=== PATIENT | male | born 1980 | race Caucasian/White ===

== ENCOUNTER 2020-11-02 08:25 | Outpatient (REF) | payer OTHER, SELFPAY ==
[2020-11-02 08:57] LABS: COVID-19 Test Negative (Negative); IDNOW Serial# 55D5AD1C
== END 2020-11-02 08:26 | disposition home or self-care (01) ==
LOC: HO.EMPCOV 08:25
PROVIDERS: PCP Internal Medicine; Visit Provider Internal Medicine
DX: Z20.828 Contact with and (suspected) exposure to other viral communicable diseases (principal)
CPT/HCPCS: 87635; C9803

== ENCOUNTER 2020-11-20 08:25 | Outpatient (REF) | payer OTHER, SELFPAY ==
[2020-11-20 09:26] LABS: COVID-19 Test Negative (Negative)
== END 2020-11-20 08:26 | disposition home or self-care (01) ==
LOC: HO.EMPCOV 08:25
PROVIDERS: Visit Provider Internal Medicine
DX: Z20.828 Contact with and (suspected) exposure to other viral communicable diseases (principal)
CPT/HCPCS: 87635; C9803

== ENCOUNTER 2020-12-05 08:23 | Outpatient (REF) | payer OTHER, SELFPAY ==
[2020-12-05 08:48] LABS: COVID-19 Test Negative (Negative); IDNOW Serial# 55D5AD1C
== END 2020-12-05 08:24 | disposition home or self-care (01) ==
LOC: HO.EMPCOV 08:23
PROVIDERS: Visit Provider Internal Medicine
DX: Z20.828 Contact with and (suspected) exposure to other viral communicable diseases (principal)
CPT/HCPCS: 36415; 87635; C9803

== ENCOUNTER 2021-02-27 12:15 | Outpatient (REF) | payer OTHER, SELFPAY ==
[2021-02-27 15:48] LABS: COVID-19 Test Negative (Negative); IDNOW Serial# 55D5AD1C
== END 2021-02-27 12:16 | disposition home or self-care (01) ==
LOC: HO.EMPCOV 12:15
PROVIDERS: Visit Provider Internal Medicine
DX: Z20.822 Contact with and (suspected) exposure to COVID-19 (principal)
CPT/HCPCS: 36415; 87635; C9803

== ENCOUNTER 2021-03-14 08:24 | Outpatient (REF) | payer OTHER, SELFPAY ==
[2021-03-14 09:21] LABS: COVID-19 Test Negative (Negative)
== END 2021-03-14 08:25 | disposition home or self-care (01) ==
LOC: HO.EMPCOV 08:24
PROVIDERS: Visit Provider Internal Medicine
DX: Z20.822 Contact with and (suspected) exposure to COVID-19 (principal)
CPT/HCPCS: 36415; 87635; C9803

== ENCOUNTER 2021-04-01 08:53 | Outpatient (REF) | payer OTHER, SELFPAY ==
[2021-04-01 09:43] LABS: COVID-19 Test Negative (Negative)
== END 2021-04-01 08:54 | disposition home or self-care (01) ==
LOC: HO.EMPCOV 08:53
PROVIDERS: Visit Provider Internal Medicine
DX: Z20.822 Contact with and (suspected) exposure to COVID-19 (principal)
CPT/HCPCS: 36415; 87635; C9803

== ENCOUNTER 2023-09-24 15:08 | Outpatient (AMB) | payer BC, SELFPAY ==
[2023-09-24 15:10] VITALS: BP 142/82; PULSE 69; TEMP 37.1; O2SAT 96; BMI 46.0
--- NOTE | 2023-09-24 15:10 | AM.OFFWIN_ITS ---
Intake Vital Signs 09/24/23 15:10 Height 6 ft Weight 339 lb 2 oz BMI 46.0 BP 142/82 H Blood Pressure Location Lt brachial Position Sitting Pulse 69 Pulse Source Pulse Oximeter Temp 98.8 F Temp Source Temporal Artery Scan Pulse Oximetry (%) 96 Intake Visit Reasons: EST/lung congestion(lobby masked) Intake Note: pt is here for c/o lung congestion Patient Tobacco Use Status: Former Tobacco user Allergies No Known Allergies Allergy (Verified 09/24/23 15:10) Do you need a note to return to daycare/school/sports/work: Yes HPI HPI Comments History of Present Illness Details 43-year-old male a COVID 1 week prior pr esents with increased cough congestion. Cough is productive with green phlegm denies fevers or chills versus please PFSH Social History Patient Tobacco Use Status: Former Tobacco user Review of Systems Resp Reports chest congestion, Reports cough and Reports excessive phlegm production Physical Exam Vital Signs: Last Vital Signs Temp 98.8 F 09/24/23 15:10 Pulse 69 09/24/23 15:10 BP 142/82 H 09/24/23 15:10 Pulse Ox 96 09/24/23 15:10 BMI result Body Mass Index 46.0 Const General: cooperative, healthy appearing, no acute distress and alert Orientation/consciousness: patient oriented x3 Limitations: no limitations HEENT Head: Yes normal to inspection Ears: hearing grossly normal bilaterally General nose exam: Normal external nose present Resp Other: Expiratory wheeze present throughout Effort & Inspection: normal respiratory effort and able to speak in complete sentences Cardio Rate: regular rate Skin General skin exam: no rashes or lesions noted Neuro General: patient oriented x3 Extrem General: Yes normal to inspection Assessment & Plan Assessment & Plan (1) Respiratory illness: Code(s): J98.9 - Respiratory disorder, unspecified Plan: Wheeze throughout. CXR- concerning for multifocal pneumonia. Patient hemodynamically stable with normal vital signs and this time no need for admission will prescribe doxycycline as well as Citrobacter with cough medicine and albuterol Discharge instructions, follow up and treatment are discussed with patient in my usual fashion. Alternatives in treatment are also discussed. The patient will return for worsening symptoms or as needed. Advised that any labs/imaging ordered will be followed up on and contact made if further treatment needed. Counseled that patient's condition may require further evaluation and/or treatment. Symptoms of concern for worsening disorder discussed in detail in my customary manner. Patient does verbalize understanding of the plan, there are no apparent barriers to communication. The patient is given the opportunity to ask questions and have them answered to his/her satisfaction (2) Pneumonia: Code(s): J18.9 - Pneumonia, unspecified organism Qualifiers: Pneumonia type: due to unspecified organism Laterality: unspecified laterality Lung location: unspecified part of lung Qualified Code(s): J18.9 - Pneumonia, unspecified organism Orders: Orders XR chest 2V Today R05.9 - Cough, unspecified Medications: New doxycycline hyclate 100 mg PO BID 14 caps 0RF 7 days benzonatate 100 mg PO BID PRN 10 caps 0RF cough albuterol sulfate 90 mcg/actuation 2 puffs inhalation Q6H PRN 8.5 grams 0RF shortness of breath or wheezing Coding Level of Care Code Est Pt Level 4 (83515) Diagnoses Respiratory illness J98.9 Pneumonia due to infectious organism, unspecified laterality, unspecified part of lung J18.9 Pneumonia type: due to unspecified organism Laterality: unspecified laterality Lung location: unspecified part of lung
== END 2023-09-24 15:57 | disposition home or self-care (01) ==
PROVIDERS: PCP Internal Medicine; Visit Provider Physician Assistant
DX: J98.9 Respiratory disorder, unspecified (principal); J18.9 Pneumonia, unspecified organism
CPT/HCPCS: 99214

== ENCOUNTER 2023-09-24 15:21 | Outpatient (REF) | payer BC, SELFPAY ==
--- NOTE | ~2023-09-24 | XR_ITS ---
EXAMINATION: XR CHEST CLINICAL INFORMATION: Cough COMPARISON: None available. TECHNIQUE: 2 views of the chest were obtained. FINDINGS: Bronchial wall thickening which can be seen in the setting of infectious/inflammatory etiology. No pneumothorax. Slight elevation the right hemidiaphragm. No pneumothorax. Trachea is midline. Cardiac mediastinal silhouette is not enlarged. No large pleural effusion. Degenerative changes of the thoracolumbar spine. Soft tissues are unremarkable. XR/XR chest 2V IMPRESSION: Bronchial wall thickening which can be seen in the setting of infectious/inflammatory etiology.
== END 2023-09-24 15:22 | disposition home or self-care (01) ==
LOC: HO.HMGCX 15:21
PROVIDERS: PCP Internal Medicine; Visit Provider Physician Assistant
DX: R05.9 Cough, unspecified (principal)
CPT/HCPCS: 71046

== ENCOUNTER → 2024-12-26 12:07 | Outpatient (BNVA) | payer OTHER, SELFPAY | PROVIDERS: PCP Internal Medicine; Visit Provider Physician Assistant Medical | DX: S61.012A Laceration without foreign body of left thumb without damage to nail, initial encounter (principal); W26.9XXA Contact with unspecified sharp object(s), initial encounter | CPT/HCPCS: 12001; 99203 ==

== ENCOUNTER → 2025-01-04 10:02 | Outpatient (BNVA) | payer OTHER, SELFPAY | PROVIDERS: PCP Internal Medicine; Visit Provider Physician Assistant Medical | DX: S61.012D Laceration without foreign body of left thumb without damage to nail, subsequent encounter (principal); W26.9XXD Contact with unspecified sharp object(s), subsequent encounter; Z02.79 Encounter for issue of other medical certificate | CPT/HCPCS: 99213 ==